=== PATIENT | male | born 1965 | race Caucasian/White ===

== ENCOUNTER 2018-11-22 09:50 | Emergency (ER) | payer OTHER ==
[~2018-11-22] VITALS: Ht 170.2 cm; Wt 102.1 kg
[2018-11-22 10:20] LABS: URINE BILIRUBIN NEGATIVE (Negative); URINE BLOOD 1+ (Negative); URINE CLARITY CLEAR; URINE COLOR YELLOW; URINE GLUCOSE-RANDOM NEGATIVE (Negative); URINE KETONES NEGATIVE (Negative); URINE LEUKOCYTES-REFLEX NEGATIVE (Negative); URINE NITRITE-REFLEX NEGATIVE (Negative); URINE PROTEIN 2+ (Negative); URINE SPECIFIC GRAVITY >= 1.030 (1.005-1.030); URINE UROBILINOGEN 0.2 E.U./dl (0.2-1.0)
[2018-11-22 10:34] LABS: ABSOLUTE BASOPHILS 0.1 thou/uL (0.0-0.2); ABSOLUTE EOSINOPHILS 0.1 thou/uL (0.0-0.7); ABSOLUTE LYMPHOCYTES 1.6 thou/uL (0.8-5.3); ABSOLUTE MONOCYTES 0.5 thou/uL (0.0-1.2); ABSOLUTE NEUTROPHILS 6.4 thou/uL (1.6-8.1); BASOPHILS 0.7 %; EOSINOPHILS 1.5 %; HEMOGLOBIN 15.4 gm/dL (14.0-18.0); LYMPHOCYTES 18.5 %; MCH 30.6 pg (26.0-34.0); MCHC 34.3 g/dL (28.0-37.0); MCV 89.3 fL (80.0-100.0); MPV 8.9 fl. (7.2-11.1); NUCLEATED RBCS 0 /100WBC; PLATELET COUNT* 230 thou/uL (150-400); POLYS 73.3 %; RBC 5.04 mil/uL (4.50-6.00); RDW-CV 13.8 % (10.5-14.5); WBC 8.8 thou/uL (4.0-11.0)
[2018-11-22 10:37] LABS: SQUAMOUS 4-10 Moderate /LPF (0-3)
[2018-11-22 10:38] LABS: BACTERIA-REFLEX 1-9 Few /HPF (None Seen); URINE WBC-REFLEX 0-5 Rare /HPF (0-5)
[2018-11-22 10:39] LABS: URINE RBC 3-10 Few /HPF (0-2)
[2018-11-22 10:40] LABS: CRYSTALS None Seen /LPF (None Seen); HYALINE CASTS 0-3 Few /LPF (None Seen); MUCUS 0-3 Light strn/LPF (None Seen)
[2018-11-22 10:52] LABS: CALCIUM 8.6 mg/dL (8.5-10.1); CREATININE 1.3 mg/dL (0.6-1.3); POTASSIUM 4.6 mmol/L (3.5-5.1)
[2018-11-22 10:56] LABS: ALBUMIN 3.9 g/dL (3.4-5.0); TOTAL BILIRUBIN 0.6 mg/dL (<0.1-1.0)
[2018-11-22] MEDS ORDERED: FLOMAX0.4 MG PO ×2 (12:54→13:30)
[2018-11-22] MEDS ORDERED: NORCO 5-325 TA1 EAC1 PO (12:54)
[2018-11-22] MEDS ORDERED: IBUPROFEN 800800 M1 PO (12:54)
[2018-11-22] MEDS ORDERED: ONDANSETRON HCL4 M2 PO (12:55)
[2018-11-22] MEDS ORDERED: NABUMETONE 750750 M1 PO (13:30)
[2018-11-22 13:42] VITALS: BP 131/74
== END 2018-11-22 13:44 | disposition home or self-care (01) ==
LOC: M.ERS 09:50
PROVIDERS: Nurse Practitioner Family
DX: N20.1 Calculus of ureter (principal); Z87.442 Personal history of urinary calculi

== ENCOUNTER 2018-12-01 14:48 | Observation (INO) | payer OTHER ==
[~2018-12-01] VITALS: Ht 172.7 cm; Wt 104.3 kg
[~2018-12-01 14:48] MED LIST: FLOMAX0.4 MG PO; IBUPROFEN 800800 M1 PO; NABUMETONE 750750 M1 PO; NORCO 5-325 TA1 EAC1 PO; ONDANSETRON HCL4 M2 PO
[2018-12-01 14:53] VITALS: BP 150/64
[2018-12-01 15:16] LABS: ABSOLUTE BASOPHILS 0.1 thou/uL (0.0-0.2); ABSOLUTE LYMPHOCYTES 1.8 thou/uL (0.8-5.3); BASOPHILS 0.5 %; EOSINOPHILS 0.1 %; HEMATOCRIT 44.1 % (42.0-52.0); MCH 30.2 pg (26.0-34.0); MCV 88.8 fL (80.0-100.0); MONOCYTES 5.8 %; MPV 8.8 fl. (7.2-11.1); NUCLEATED RBCS 0 /100WBC; PLATELET COUNT* 242 thou/uL (150-400); POLYS 83.6 %; RBC 4.97 mil/uL (4.50-6.00); RDW-CV 13.6 % (10.5-14.5)
[2018-12-01 15:20] LABS: CALCIUM 9.3 mg/dL (8.5-10.1); CREATININE 1.4 mg/dL (0.6-1.3)
[2018-12-01 15:25] LABS: ALBUMIN 4.2 g/dL (3.4-5.0); TOTAL BILIRUBIN 0.7 mg/dL (<0.1-1.0); TOTAL PROTEIN 7.5 g/dL (6.4-8.2)
[2018-12-01 16:36] VITALS: BP 150/64
[2018-12-01 16:45] VITALS: BP 114/78
--- NOTE | 2018-12-01 16:45 | NUR ---
ADMIT NOTE - PT ADMITTED FROM ED VIA CART. PT ABLE TO AMBULATE FROM CART TO BED. ORIENTED TO CALL LIGHT AND SURROUNDINGS. WILL CONTINUE TO MONITOR.
[2018-12-01 20:20] VITALS: BP 109/65
[2018-12-01 21:54] LABS: URINE BILIRUBIN NEGATIVE (Negative); URINE BLOOD 3+ (Negative); URINE CLARITY CLEAR; URINE COLOR YELLOW; URINE GLUCOSE-RANDOM 1+ (Negative); URINE KETONES NEGATIVE (Negative); URINE LEUKOCYTES-REFLEX NEGATIVE (Negative); URINE NITRITE-REFLEX NEGATIVE (Negative); URINE PROTEIN NEGATIVE (Negative); URINE SPECIFIC GRAVITY <= 1.005 (1.005-1.030); URINE UROBILINOGEN 0.2 E.U./dl (0.2-1.0)
[2018-12-01 22:05] LABS: HYALINE CASTS 0-3 Few /LPF (None Seen); MUCUS None Seen strn/LPF (None Seen); SQUAMOUS 0-3 Few /LPF (0-3)
[2018-12-01 22:06] LABS: BACTERIA-REFLEX None Seen /HPF (None Seen); CRYSTALS None Seen /LPF (None Seen); URINE WBC-REFLEX 0-5 Rare /HPF (0-5)
[2018-12-01 23:37] VITALS: BP 115/60
[2018-12-02 04:00] VITALS: BP 122/54
--- NOTE | 2018-12-02 04:29 | NUR ---
PT ALERT AND ORIENTED. MED, FLUID GIVEN ORDERED. PT HAD PAIN AFTER HE WENT TO THE BATHROOM, AND ASKED FOR PAIN MED. BUT THEN HE WANTED TO WAIT SINCE IT WAS TOLERABLE. PT SLEPT THROUGHT THE NIGHT. NO NAUSEA OR VOMITING THIS SHIFT. HOURLY ROUNDING COMPLETED. WILL CONTINIUE TO MONITOR.
[2018-12-02 07:40] VITALS: BP 106/63
[2018-12-02] MEDS ORDERED: FLOMAX0.4 MG PO (10:05)
[2018-12-02] MEDS ORDERED: SENNA S TABLET1 EACH PO (10:05)
[2018-12-02 10:55] LABS: ABSOLUTE BASOPHILS 0.1 thou/uL (0.0-0.2); ABSOLUTE EOSINOPHILS 0.1 thou/uL (0.0-0.7); ABSOLUTE LYMPHOCYTES 1.4 thou/uL (0.8-5.3); ABSOLUTE MONOCYTES 0.7 thou/uL (0.0-1.2); ABSOLUTE NEUTROPHILS 6.5 thou/uL (1.6-8.1); BASOPHILS 0.9 %; HEMATOCRIT 42.7 % (42.0-52.0); HEMOGLOBIN 14.4 gm/dL (14.0-18.0); LYMPHOCYTES 15.7 %; MCH 30.6 pg (26.0-34.0); MCHC 33.8 g/dL (28.0-37.0); MCV 90.4 fL (80.0-100.0); MONOCYTES 7.6 %; MPV 8.2 fl. (7.2-11.1); NUCLEATED RBCS 0 /100WBC; PLATELET COUNT* 184 thou/uL (150-400); POLYS 74.8 %; RBC 4.72 mil/uL (4.50-6.00); RDW-CV 14.1 % (10.5-14.5); WBC 8.7 thou/uL (4.0-11.0)
[2018-12-02 11:04] LABS: CALCIUM 8.8 mg/dL (8.5-10.1); CREATININE 1.1 mg/dL (0.6-1.3); PHOSPHORUS* 2.3 mg/dL (2.5-4.9); POTASSIUM 4.2 mmol/L (3.5-5.1)
[2018-12-02 13:00] VITALS: BP 106/63
--- NOTE | 2018-12-02 14:19 | NUR ---
ASSUMED CARE OF PATIENT AT APPROX 0730. ALERT AND ORIENTED X4. ASSESSMENT COMPLETED AND CHARTED. VSS ON ROOM AIR. NO COMPLAINTS OF PAIN, NAUSEA, OR SOA. FLUIDS INFUSING ORDERED. PATIENT DISCHARGED AT 1420 WITH ALL PERSONAL BELONGINGS, PRESCRIPTIONS AND DISCHARGE INFORMATION.
== END 2018-12-02 14:20 | disposition home or self-care (01) ==
LOC: M.ERS 14:48 → M.ORTHSURG 16:14 → M.TBA-ER 16:14 → M.ORTHSURG 16:14
PROVIDERS: Family Medicine; Nurse Practitioner Family; ADMIT Family Medicine
DX: N20.0 Calculus of kidney (principal); R11.2 Nausea with vomiting, unspecified; R73.09 Other abnormal glucose; Z98.890 Other specified postprocedural states; Z79.899 Other long term (current) drug therapy

== ENCOUNTER 2019-01-06 15:11 | Emergency (ER) | payer OTHER ==
[~2019-01-06] VITALS: Ht 170.2 cm; Wt 97.5 kg
[~2019-01-06 15:11] MED LIST changes: +SENNA S TABLET1 EACH PO
[2019-01-06] MEDS ORDERED: IBUPROFEN 800800 MG PO (17:14)
[2019-01-06] MEDS ORDERED: AUGMENTIN 500-1 EACH PO (17:14)
[2019-01-06] MEDS ORDERED: NORCO 5-325 TA1 EAC1 PO (17:14)
[2019-01-06 17:50] VITALS: BP 116/65
== END 2019-01-06 17:52 | disposition home or self-care (01) ==
LOC: M.ERS 15:11
DX: S61.211A Laceration without foreign body of left index finger without damage to nail, initial encounter (principal); S61.215A Laceration without foreign body of left ring finger without damage to nail, initial encounter; S61.412A Laceration without foreign body of left hand, initial encounter; W26.8XXA Contact with other sharp object(s), not elsewhere classified, initial encounter; Y93.89 Activity, other specified; Y92.89 Other specified places as the place of occurrence of the external cause; Y99.8 Other external cause status